=== PATIENT | male | born 1970 | race African-American/Black ===

== ENCOUNTER 2017-02-13 15:19 | Emergency (ER) | payer MEDICAID, OTHER ==
[~2017-02-13] VITALS: Ht 180.3 cm; Wt 75.0 kg
[2017-02-13] MEDS ORDERED: KETOROLAC 30MG/ML VIAL IV STA (15:49)
[2017-02-13] MEDS ORDERED: SODIUM CHLORIDE 0.9% 1,000 ML IV ONE (15:49)
[2017-02-13] MEDS ORDERED: ONDANSETRON HCL 4MG/2ML VIAL IV STA (15:49)
[2017-02-13 16:17] LABS: BASOPHILS % 0.6 % (0.0-2.0); EOSINOPHILS % 1.8 % (0.0-5.0); HEMATOCRIT. 44.4 % (42.0-52.0); LYMPHOCYTES % 26.7 % (20.0-50.0); MEAN CORPUSCULAR HEMOGLOBIN 30.7 pg (28.0-32.0); MEAN CORPUSCULAR VOLUME 90.7 fL (80.0-94.0); MONOCYTES % 7.2 % (2.0-8.0); NEUTROPHILS % 63.7 % (40.0-76.0); PLATELET 191 x1000/uL (130-400); RED CELL DISTRIBUTION WIDTH 13.6 % (11.6-14.6)
[2017-02-13 16:22] LABS: CHLORIDE 105 mEq/L (98-107)
[2017-02-13 16:29] LABS: CARBON DIOXIDE 28 mEq/L (21-32); ETHANOL BLOOD 10 mg/dL
[2017-02-13 19:49] VITALS: BP 117/69
== END 2017-02-13 19:55 | disposition home or self-care (01) ==
LOC: ER 15:34
DX: R55 Syncope and collapse (principal); I12.9 Hypertensive chronic kidney disease with stage 1 through stage 4 chronic kidney disease, or unspecified chronic kidney disease; N18.9 Chronic kidney disease, unspecified; E78.00 Pure hypercholesterolemia, unspecified; F12.10 Cannabis abuse, uncomplicated; F10.10 Alcohol abuse, uncomplicated; Y90.0 Blood alcohol level of less than 20 mg/100 ml; G89.29 Other chronic pain; M79.605 Pain in left leg; Z88.0 Allergy status to penicillin
CPT/HCPCS: 36415; 70450; 73502; 73590; 73610; 80053; 85025; 93005; 99285; G0482; Z7610; J7030

== ENCOUNTER 2024-06-22 01:07 | Emergency (ER) | payer MEDICAID, OTHER ==
[~2024-06-22] VITALS: Ht 185.4 cm; Wt 91.0 kg
[2024-06-22 01:10] VITALS: TEMP 98; O2SAT 98
[2024-06-22 04:24] VITALS: BP 150/90; PULSE 78; RESP 16
[2024-06-22] MEDS: IBUPROFEN 600MG TABLET PO ONE (04:24)
[2024-06-22] MEDS ORDERED: IBUP-2029 MT (04:59)
== END 2024-06-22 07:54 | disposition home or self-care (01) ==
LOC: ER 01:13
DX: S92.331A Displaced fracture of third metatarsal bone, right foot, initial encounter for closed fracture (principal); S92.341A Displaced fracture of fourth metatarsal bone, right foot, initial encounter for closed fracture; E78.00 Pure hypercholesterolemia, unspecified; I10 Essential (primary) hypertension; Z88.0 Allergy status to penicillin; Z98.890 Other specified postprocedural states; V98.8XXA Other specified transport accidents, initial encounter; Y93.89 Activity, other specified; Y92.89 Other specified places as the place of occurrence of the external cause; Y99.8 Other external cause status
CPT/HCPCS: 29515; 73630; 99283